=== PATIENT | female | born 1975 | race Caucasian/White ===

== ENCOUNTER 2017-02-20 19:40 | Emergency (ER) | payer BC, MEDICARE ==
[~2017-02-20] VITALS: Ht 160 cm; Wt 55.3 kg
[~2017-02-20 19:40] MED LIST: ACARBOSE100 MG PO; ALEVE220 MG PO; CALCIUM-MAGNES1 EAC7 PO; GLUCOPHAGE500 MG PO; LACTASE3000 UNIT PO; OMEPRAZOLE20 MG PO; VICTOZA 2-0.6 MG/0.1 SUB-Q; VITAMIN B122500 MC1 SL; XANAX0.5 MG PO; ZOLOFT100 MG PO
[2017-03-01] MEDS ORDERED: TRAZODONE HCL50 MG PO (11:17)
== END 2017-02-20 22:42 | disposition home or self-care (01) ==
LOC: ED 19:40
DX: R19.7 Diarrhea, unspecified (principal); E11.9 Type 2 diabetes mellitus without complications; Z90.710 Acquired absence of both cervix and uterus; Z87.891 Personal history of nicotine dependence; Z98.84 Bariatric surgery status; Z88.5 Allergy status to narcotic agent; Z88.8 Allergy status to other drugs, medicaments and biological substances; Z79.84 Long term (current) use of oral hypoglycemic drugs
CPT/HCPCS: 80053; 85025; 96361; 96374; 99283; J7030

== ENCOUNTER 2021-05-30 20:36 | Emergency (ER) | payer MEDICARE, OTHER ==
[~2021-05-30] VITALS: Ht 160 cm; Wt 70.3 kg
[~2021-05-30 20:36] MED LIST changes: +COPPER2 MG; +COPPER2 MG PO; +FOLIC ACID0.4 MG PO; +TRAZODONE HCL50 MG PO; +VITAMIN D32000 UNI1 PO; +VITAMIN D50000 UNI1 PO
--- OUTSIDE RECORDS SUMMARY | 2021-05-30 20:44 | XMS ---
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 E.Laura VISIT COUNT (12 MO.) 2 [facility] 2 [facility] 1 [facility] [place] TOTAL 5 NOTE: Visits indicate total known visits. ED/UCC VISIT TRACKING (12 MO.) 05/30/2021 20:37 [facility] [place] TYPE: Emergency COMPLAINT: - LOW BLOOD SUGAR 05/25/2021 14:47 [facility] TYPE: Emergency DIAGNOSES: - Unsteadiness on feet - Dizziness - Low Blood Sugar; Lightheaded - Dizziness and giddiness - Low Blood Sugar (Symptomatic) - Headache, unspecified - Other abnormal glucose 04/26/2021 20:33 [facility] TYPE: Emergency DIAGNOSES: - Epigastric pain - Emesis - Abdominal Pain - Nausea 09/17/2020 07:52 [facility] [place] TYPE: Emergency DIAGNOSES: - LIGHT HEADED PASSED OUT - Syncope and collapse - Hypoglycemia, unspecified 06/24/2020 10:29 [email or web address] [place] TYPE: Emergency DIAGNOSES: - Viral infection, unspecified - Hypoglycemia, unspecified - HYPOGLCEMIA - HYPOGLYCEMIA INPATIENT VISIT TRACKING (12 MO.) No inpatient visits to display in this time frame [email or web address]
[2021-05-30] MEDS ORDERED: PEPCID20 MG PO (20:56)
[2021-05-30] MEDS ORDERED: K-TAB ER20 MEQ PO (20:56)
[2021-05-30] MEDS ORDERED: MULTI VITAMIN1 EACH PO (20:57)
== END 2021-05-30 22:50 | disposition home or self-care (01) ==
LOC: ED 20:36
DX: R73.09 Other abnormal glucose (principal); E11.9 Type 2 diabetes mellitus without complications; Z87.891 Personal history of nicotine dependence; Z88.5 Allergy status to narcotic agent; Z88.6 Allergy status to analgesic agent; Z88.8 Allergy status to other drugs, medicaments and biological substances; Z79.899 Other long term (current) drug therapy
CPT/HCPCS: 80053; 85025; 96374; 99283-25